=== PATIENT | male | born 1990 | race Two or more races ===

== ENCOUNTER 2024-12-13 07:00 | Day surgery (SDC) | payer OTHER ==
[2024-12-08 15:07] VITALS: BP 114/78
[~2024-12-13] VITALS: Ht 177.8 cm; Wt 136.1 kg
[~2024-12-13 07:00] MED LIST: BUPROPION HCL150 MG PO; LITHOBID300 M1 PO; PROPRANOLOL HCL40 MG PO
[2024-12-13] MEDS ORDERED: HEMOSTATIC MATRIX 1 KIT KIT TOP SCH (10:00)
[2024-12-13] MEDS ORDERED: METRONIDAZOLE/SODIUM CHLORIDE 500 MG/100 ML PIGGYBACK IV SCH (10:00)
[2024-12-13] MEDS ORDERED: DIBUCAINE 30 GM TUBE RECTAL SCH (10:00)
[2024-12-13] MEDS ORDERED: POVIDONE-IODINE 118 ML BOTT TOP SCH (10:00)
[2024-12-13] MEDS ORDERED: LIDOCAINE HCL 2%/EPINEPHRINE 20ML VIAL IJ SCH (10:00)
[2024-12-13] MEDS ORDERED: BUPIVACAINE HCL 30 ML VIAL IJ SCH (10:00)
[2024-12-13] MEDS ORDERED: CEFTRIAXONE SODIUM 2,000 MG VIAL IV SCH (10:00)
[2024-12-13] MEDS ORDERED: MORPHINE SULFATE 4 MG/ML VIAL IV ONE (12:20)
== END 2024-12-13 14:25 | disposition home or self-care (01) ==
LOC: CIR.AMB 07:00
PROVIDERS: ATTEND Colon & Rectal Surgery
DX: K64.2 Third degree hemorrhoids (principal); K64.4 Residual hemorrhoidal skin tags